=== PATIENT | male | born 1965 | race Hispanic/Latino ===

== ENCOUNTER 2017-08-17 15:51 | Observation (INO) | payer BC ==
[2017-08-17 15:52] VITALS: BMI 28.4
--- NOTE | 2017-08-17 17:47 | ED PDOC ---
Arrival/HPI - General Chief Complaint: Weakness/Neurological Deficit Time Seen by Provider: 08/17/17 16:42 Historian: Patient - History of Present Illness Narrative History of Present Illness (Text): 08/17/17 17:42 52 year old male, with no significant past medical history, presents to the emergency department complaining of right hand tingling and weakness for 1 week. Patient notes associated clumsiness, occasional difficulty speaking, and off balance when walking. Patient notes occasional drinks. Patient denies any fever, chills, chest pain, shortness of breath, nausea, vomiting, diarrhea, back pain, neck pain, headache, dizziness, or any other complaints. Time/Duration: 1 week Symptom Course: Unchanged Activities at Onset: Light Context: Home Past Medical History - Provider Review Nursing Documentation Reviewed: Yes - Infectious Disease Hx of Infectious Diseases: None - Cardiac Hx Cardiac Disorders: Yes - Pulmonary Hx Respiratory Disorders: No - Neurological Hx Neurological Disorder: No - HEENT Hx HEENT Disorder: No - Renal Hx Renal Disorder: No - Endocrine/Metabolic Hx Endocrine Disorders: No - Hematological/Oncological Hx Blood Disorders: No - Integumentary Hx Dermatological Disorder: No - Musculoskeletal/Rheumatological Hx Musculoskeletal Disorders: Yes Hx Falls: No Hx Herniated Disk: Yes (neck with epidural injections) - Gastrointestinal Hx Gastrointestinal Disorders: Yes (colitis) Hx Diverticulitis: Yes Hx Gastroesophageal Reflux: Yes - Genitourinary/Gynecological Hx Genitourinary Disorders: No - Psychiatric Hx Psychophysiologic Disorder: No Hx Substance Use: No - Surgical History Hx Cardiac Catheterization: Yes - Anesthesia Hx Anesthesia: Yes Hx Anesthesia Reactions: No Hx Malignant Hyperthermia: No Family/Social History - Physician Review Nursing Documentation Reviewed: Yes Family/Social History: No Known Family HX, Other Smoking Status: Never Smoked Hx Alcohol Use: Yes ("couple days a week") Frequency of alcohol use: Few days per week Hx Substance Use: No Hx Substance Use Treatment: No Allergies/Home Meds Allergies/Adverse Reactions: Allergies No Known Allergies Allergy (Verified 08/17/17 16:03) Home Medications: Home Meds Medication Instructions Recorded Confirmed No Known Home Med 08/17/17 08/17/17 Review of Systems - Patients Enrolled in [employer] [X]: A conversation was conducted with the primary medical doctor. - Physician Review All systems were reviewed & negative as marked: Yes - Review of Systems Constitutional: Normal Eyes: Normal ENT: Normal Respiratory: Normal. absent: SOB, Cough Cardiovascular: Normal. absent: Chest Pain Gastrointestinal: Normal. absent: Abdominal Pain, Diarrhea, Nausea, Vomiting Genitourinary Male: Normal. absent: Dysuria, Frequency, Urinary Output Changes Musculoskeletal: Other (hand tingling and weakness). absent: Back Pain, Neck Pain Skin: Normal. absent: Rash Neurological: Speech Changes (occasional difficulty speaking). absent: Headache , Dizziness Endocrine: Normal Hemo/Lymphatic: Normal Psychiatric: Normal Physical Exam Vital Signs Temp Resp BP Pulse Ox 08/17/17 19:37 98.1 F 18 152/98 H 98 - Systems Exam Head: Present: Atraumatic, Normocephalic Pupils: Present: PERRL Extroacular Muscles: Present: EOMI Conjunctiva: Present: Normal Mouth: Present: Moist Mucous Membranes Neck: Present: Normal Range of Motion Respiratory/Chest: Present: Clear to Auscultation, Good Air Exchange. No: Respiratory Distress, Accessory Muscle Use Cardiovascular: Present: Regular Rate and Rhythm, Normal S1, S2. No: Murmurs Abdomen: No: Tenderness, Distention, Peritoneal Signs Back: Present: Normal Inspection. No: CVA Tenderness, Midline Tenderness, Paraspinal Tenderness Upper Extremity: Present: Other (RUE +1 drift). No: Cyanosis, Edema Lower Extremity: Present: Normal Inspection. No: Edema Neurological: Present: Speech Normal, Other (mild sensation deficits rt face, rt arm, rt leg; + Romberg's sign; Ataxic when walking) Skin: Present: Warm, Dry, Normal Color. No: Rashes Psychiatric: Present: Alert, Oriented x 3, Normal Insight, Normal Concentration Medical Decision Making ED Course and Treatment: 08/17/17 17:53 Impression: 52 year old male presents to the emergency department complaining of rt hand tingling and weakness. Plan: -- Head CT -- Labs -- EKG -- Aspirin -- Reassess and disposition Progress Notes: 08/17/17 19:47 Due to no prior Hx of CVA, ataxia, or rt arm weakness, pt admitted for stroke work up. 08/17/17 19:58 EKG reviewed, shows NSR at [address] wave changes. Normal axis. Normal EKG. 08/17/17 21:04 concern for new subacute CVA and ataxia, given new onset, and no hx of cva, will admit for MRI and neuroconsult. dr. Neil requested Reassessment Condition: Unchanged - Lab Interpretations Lab Results: 08/17/17 17:56 08/17/17 17:56 Lab Results 08/17/17 17:56: PT 11.9, INR 1.04 08/17/17 17:56: Sodium 145, Potassium 4.6, Chloride 106, Carbon Dioxide 26, Anion Gap 17, BUN 19, Creatinine 1.2, Est GFR ( Amer) > 60, Est GFR (Non- Af Amer) > 60, Random Glucose 113 H, Calcium 9.1 08/17/17 17:56: WBC 7.5 D, RBC 5.24, Hgb 15.8, Hct 46.0, MCV 87.8, MCH 30.2, MCHC 34.3, RDW 12.2, Plt Count 261, MPV 9.8, Gran % 54.2, Lymph % (Auto) 33.3, [place] % (Auto) 10.1 H, Eos % (Auto) 2.1, Baso % (Auto) 0.3, Gran # 4.08, Lymph # (Auto) 2.5, [place] # (Auto) 0.8 H, Eos # (Auto) 0.2, Baso # (Auto) 0.02 08/17/17 15:58: POC Glucose (mg/dL) 125 H I have reviewed the lab results: Yes - RAD Interpretation Radiology Orders: 08/17/17 16:43 HEAD W/O CONTRAST [CT] Stat - EKG Interpretation Interpreted by ED Physician: Yes - Medication Orders Current Medication Orders: Sodium Chloride (Sodium Chloride 0.9%) 1,000 mls @ 100 mls/hr IV .Q10H STA Stop: 08/18/17 07:46 Discontinued Medications Aspirin (Aspirin Chewable) 324 mg PO STAT STA Stop: 08/17/17 19:47 NIHSS Stroke Scale 3 - Date/Time Evaluation Performed Date Performed: 08/17/17 Time Performed: 19:45 When Was NIHSS Performed: Baseline - How Severe is the Stroke Level of Consciousness: 0=Alert LOC to Questions: 0=Both comments correct LOC to commands: 0=Obeys both correctly Best Gaze: 0=Normal Visual: 0=No visual loss Facial: 0=Normal Motor Arm - Left: 0=No drift Motor Arm - Right: 1=Drift noted before 10 sec Motor Leg - Left: 0=No drift Motor Leg - Right: 0=No drift Limb Ataxia: 1=Present Upper or Lower Sensory: 1=Mild to moderate loss Best Language: 0=No aphasia Dysarthia: 0=Normal articulation Extinction & Inattention (Neglect): 0=Normal, no object Score: 3 - Scribe Statement The provider has reviewed the documentation as recorded by the Cyndieibaristeo Padilla All medical record entries made by the Cyndieibaristeo were at my direction and personally dictated by me. I have reviewed the chart and agree that the record accurately reflects my personal performance of the history, physical exam, medical decision making, and the department course for this patient. I have also personally directed, reviewed, and agree with the discharge instructions and disposition. Disposition/Present on Arrival - Present on Arrival Any Indicators Present on Arrival: No History of DVT/PE: No History of Uncontrolled Diabetes: No Urinary Catheter: No History of Decub. Ulcer: No History Surgical Site Infection Following: None - Disposition Have Diagnosis and Disposition been Completed?: Yes Diagnosis: Stroke Disposition: HOSPITALIZED Disposition Time: 22:03 Patient Plan: Observation, Telemetry Patient Problems: Current Active Problems Problem Status Onset Stroke Acute Condition: IMPROVED
[2017-08-17 18:00] LABS: BASO # 0.02 K/mm3 (0.0-2.0); BASO % 0.3 % (0.0-3.0); EOS # 0.2 (0.0-0.7); EOS % 2.1 % (1.5-5.0); GRAN # 4.08 (1.4-6.5); GRAN % 54.2 % (50.0-68.0); HEMOGLOBIN 15.8 g/dL (14.0-18.0); LYMPH # 2.5 (1.2-3.4); LYMPH % 33.3 % (22.0-35.0); MEAN CELL VOLUME 87.8 fl (80.0-105.0); MEAN CORPUSCULAR HEMOGLOBIN 30.2 pg (25.0-35.0); MEAN CORPUSCULAR HGB CONC 34.3 g/dl (31.0-37.0); MEAN PLATELET VOLUME 9.8 fl (7.0-11.0); MONO # 0.8 (0.1-0.6); MONO % 10.1 % (1.0-6.0); RBC 5.24 10^6/uL (3.5-6.1); RED CELL DISTRIBUTION WIDTH 12.2 % (11.5-14.5); WHITE BLOOD COUNT 7.5 10^3/ul (4.5-11.0)
[2017-08-17 18:11] LABS: INR 1.04 (0.93-1.08); PROTHROMBIN TIME 11.9 SECONDS (9.4-12.5)
[2017-08-17 18:13] LABS: BLOOD UREA NITROGEN 19 mg/dL (7-21); CALCIUM 9.1 mg/dL (8.4-10.5); GFR AFRICAN-AMERICAN > 60; GFR NON-AFRICAN AMERICAN > 60
--- NOTE | 2017-08-17 18:39 | CT ---
PROCEDURE: CT HEAD WITHOUT CONTRAST. HISTORY: Right arm weakness. COMPARISON: January 25, 2015 TECHNIQUE: Axial computed tomography images were obtained through the head/brain without intravenous contrast. Coronal and sagittal reconstructed images. Radiation dose: Total exam DLP = 871.77 mGy-cm. This CT exam was performed using one or more of the following dose reduction techniques: Automated exposure control, adjustment of the mA and/or kV according to patient size, and/or use of iterative reconstruction technique. FINDINGS: HEMORRHAGE: No intracranial hemorrhage. BRAIN: No mass effect or edema. No atrophy or chronic microvascular ischemic changes. VENTRICLES: Unremarkable. No hydrocephalus. CALVARIUM: Unremarkable. PARANASAL SINUSES: Unremarkable as visualized. No significant inflammatory changes. MASTOID AIR CELLS: Unremarkable as visualized. No inflammatory changes. OTHER FINDINGS: None. IMPRESSION: No acute intracranial abnormalities. No significant findings to account for the clinical presentation. No significant interval change compared to the prior examination(s).
[2017-08-17] MEDS ORDERED: Sodium Chloride 0.9% 1,000 ML IV STA (21:47)
[2017-08-18] MEDS ORDERED: Pneumococcal 23-Valent Vaccine IM ONE (01:03)
[2017-08-18 07:25] LABS: HDL CHOLESTEROL 39 mg/dL (29-60)
[2017-08-18 07:36] LABS: LDL CHOLESTEROL 146 mg/dL (0-129)
[2017-08-18 08:10] LABS: TROPONIN I < 0.01 ng/mL
[2017-08-18] MEDS ORDERED: Enoxaparin 100 mg Syringe SC STA (08:50)
[2017-08-18] MEDS: Aspirin 325 mg EC Tablets PO SCH (10:06)
--- NOTE | 2017-08-18 12:17 | CON ---
DATE: 08/18/2017 INDICATIONS: Right upper extremity numbness, light headedness, chest pain rule out stroke. HISTORY OF PRESENT ILLNESS: This is a 52-year-old man known to me, admitted yesterday when he complained of numbness in his right hand for about a week extending into his right forearm for a day or so. He came to the emergency room for evaluation. He was admitted. Today, he describes brief chest pain yesterday, as well. He has been light headed. There was a period of slurred speech as well. He does not describe typical exertional chest pain, shortness of breath, orthopnea, PND, syncope, vertigo, palpitations, edema, claudication, fever, chills, cough, sputum production, hemoptysis, abdominal pain, nausea, vomiting, diarrhea, constipation, melena. PAST MEDICAL HISTORY: Notable for mild coronary artery disease on a catheterization several years ago. He has cerebrovascular disease on an ultrasound several years ago. He has a history of hyperlipidemia and lactose intolerance. There is a strong family history of heart disease. There is no history of myocardial infarction, angina, congestive heart failure, arrhythmia, diabetes, or gout. MEDICATIONS: At the time of admission is Lipitor 20 mg daily. ALLERGIES: THERE WERE NO MEDICATION ALLERGIES REPORTED. FAMILY HISTORY: Notable for heart disease. SOCIAL HISTORY: He lives at home. He is ambulatory. He does not smoke. He drinks occasionally during the week. He does not use drugs. REVIEW OF SYSTEMS: A 10-point review of systems is otherwise unremarkable except as noted above. PHYSICAL EXAMINATION: GENERAL: He is a well-developed male in no acute distress on 3R. He is in sinus rhythm to sinus bradycardia. VITAL SIGNS: He is afebrile. Blood pressure 149/82, respirations 18 to 20, O2 sat 96-100% on room air. HEENT: Reveals no neck vein distention, thyromegaly or carotid bruit. Mucous membranes moist. Conjunctivae pink. NECK: Supple. LUNGS: Lung dubon clear. HEART: Reveals normal first and second heart sounds without murmur, gallop, rub or click. ABDOMEN: Soft. Bowel sounds are present. No mass, organomegaly, tenderness, rebound or guarding. No CVA tenderness. No palpable abdominal aortic aneurysm. EXTREMITIES: Reveal no cyanosis, clubbing or edema. NEUROLOGIC: He was awake, alert and oriented. PSYCHIATRIC: Normal as to mood and affect. SKIN: Warm and dry. No rash or cellulitis. LABORATORY DATA AND IMAGING: The EKG demonstrated regular sinus rhythm and is within normal limits. CT scan of the head revealed no acute intracranial abnormalities. CBC is unremarkable. PT/INR unremarkable. Electrolytes, BUN, creatinine, blood sugar unremarkable. Calcium is normal. CK 175, troponin less than 0.01, cholesterol is 215, LDL is 146, HDL is 39, triglyceride is 222. IMPRESSION: Ronny Oneal is a 52-year-old man with vague chest pain, history of mild coronary artery disease, benign EKG and a negative troponin who also describes 1 week of numbness in the right hand and then in the right forearm with episodes of slurred speech and persisting vague lightheadedness. He is admitted to telemetry. I will repeat his troponin. He is having a neurologic evaluation. Carotid ultrasound and MRIs will be ordered. I will order an echocardiogram. He is on aspirin. I will continue Lipitor. I will follow along with you. Make additional recommendations based on his clinical course. Edd Love MD SONAL
[2017-08-18] MEDS: Sodium Chloride 0.9% 1,000 ML IV SCH (13:40)
--- NOTE | 2017-08-18 14:22 | MRI ---
PROCEDURE: MRI BRAIN WITHOUT CONTRAST HISTORY: ataxia COMPARISON: 08/27/2012 MRI TECHNIQUE: Multiplanar, multisequence MR images of the brain were obtained without intravenous contrast enhancement. FINDINGS: HEMORRHAGE: None DWI: No evidence of an acute or early subacute infarction. BRAIN PARENCHYMA: No mass effect or edema. No atrophy or chronic microvascular ischemic changes. VENTRICLES: Unremarkable. No hydrocephalus. CRANIUM: Unremarkable. ORBITS: Grossly unremarkable. PARANASAL SINUSES/MASTOIDS: Clear VASCULAR SYSTEM: Skull base flow voids intact. OTHER FINDINGS: None. IMPRESSION: Unremarkable non contrast enhanced MRI of the brain.
--- NOTE | 2017-08-18 14:58 | CARD ---
APPROVED REPORT EXAM: Two-dimensional and M-mode echocardiogram with Doppler and color Doppler. INDICATION R/O CVA 2D DIMENSIONS Left Atrium (2D)4.0 (1.6-4.0cm)IVSd0.9 (0.7-1.1cm) LVDd4.6 (3.9-5.9cm)PWd1.1 (0.7-1.1cm) LVDs3.4 (2.5-4.0cm)FS (%) 26.8 % LVEF (%)52.3 (>50%) M-Mode DIMENSIONS Aortic Root3.00 (2.2-3.7cm)Aortic Cusp Exc.1.80 (1.5-2.0cm) Aortic Valve AoV Peak Ehokgfjm829.0cm/Ivonne Peak GR.6mmHg Mitral Valve MV E Hulakect89.3cm/sMV A Quwwbfhp39.5cm/sE/A ratio0.8 TDI Lateral E' Peak V11.10cm/sMedial E' Peak V7.51cm/sE/Lateral E'4.9 E/Medial E'7.2 Pulmonary Valve PV Peak Vptbuqon46.8cm/sPV Peak Grad.1mmHg Tricuspid Valve TR Peak Nyztntpc542my/sRAP [id number] Peak Gr.7mmHg [id number] LEFT VENTRICLE The left ventricle is normal size. There is normal left ventricular wall thickness. The left ventricular function is normal. The left ventricular ejection fraction is within the normal range. There is normal LV segmental wall motion. RIGHT VENTRICLE The right ventricle is normal size. The right ventricular systolic function is normal. ATRIA The left atrium is borderline dilated. The right atrium size is normal. The interatrial septum is intact with no evidence for an atrial septal defect. AORTIC VALVE The aortic valve is normal in structure. No aortic regurgitation is present. There is no aortic valvular stenosis. MITRAL VALVE The mitral valve is normal in structure. Mitral regurgitation is mild. TRICUSPID VALVE The tricuspid valve is normal in structure. There is mild tricuspid regurgitation. PULMONIC VALVE The pulmonary valve is normal in structure. GREAT VESSELS The aortic root is normal in size. The IVC is normal in size and collapses >50% with inspiration. PERICARDIAL EFFUSION There is no pleural effusion. There is no pericardial effusion. <Conclusion> Borderline LA enlargement. Normal LV size and systolic function. Mild MR and TR.
[2017-08-18 18:42] VITALS: RESP 18
--- NOTE | 2017-08-18 19:32 | CON ---
DATE: 08/18/2017 NEUROLOGY CONSULTATION CHIEF COMPLAINT: Dizziness and right upper extremity numbness. HISTORY OF PRESENT ILLNESS: This is a 52-year-old man with history notable for mild coronary artery disease with cardiac catheterization several years ago, history of hypertension, hyperlipidemia who presented to the hospital with right hand numbness and decreased right handgrip, in addition paresthesias of the right forearm as well as slight dizziness and a period of slurred speech. CAT of the head showed no acute intracranial abnormality. MRI of the brain was nonfocal, showed no acute intracranial abnormalities. It seems that his right hand numbness is more of a peripheral problem rather than central and rather than it was negative. Carotid Doppler report is pending. No focal weakness seen on neurological exam. PAST MEDICAL HISTORY: As above. SOCIAL HISTORY: No illicit drug use, smoking, or EtOH abuse. ALLERGIES: NO KNOWN DRUG ALLERGIES. MEDICATIONS: Reviewed by nurses' reconciliation sheet. REVIEW OF SYSTEMS: A 14-point review of systems negative except in the HPI. LABORATORY DATA: Sodium is 145, potassium 4.6, chloride of 106, carbon dioxide of 26, BUN of 90, creatinine 1.2, random glucose 113. Elevated triglycerides of 220. LDL of 146. PHYSICAL EXAMINATION: VITAL SIGNS: Temperature afebrile, pulse rate of 88, blood pressure 149/80, respiratory rate 20, oxygen saturation 97% by room air. GENERAL: The patient is sitting up in bed, in no acute distress. HEENT: Head is atraumatic and normocephalic. PERRLA. Extraocular muscles intact. NECK: Supple. No JVD. No adenopathy noted. LUNGS: Clear to auscultation. No adventitious sounds. HEART: S1 and S2, normal rate and rhythm. No murmur, rubs, or gallops. ABDOMEN: Soft, nontender, and nondistended. Bowel sounds present. EXTREMITIES: No clubbing. No cyanosis. Peripheral pulses 2+ felt bilaterally. NEUROLOGIC: The patient is alert and oriented to person, place, month, and year. Speech is fluent without any errors. Cranial nerves II through XII intact. Motor: Moves all extremities equally. No pronator drift seen. Sensory: Light touch pinprick, proprioception, and vibration are intact. DTRs are 2+ throughout. Coordination, [id number]-fzzd intact. Gait is deferred for now. No dysmetria noted. ASSESSMENT AND PLAN: This is a 52-year-old man with history of hypertension, dyslipidemia, has right upper extremity numbness in terms of hand numbness up to the forearm, but no neck pain or radicular symptoms. He had transient lightheadedness, likely from mild hypertensive urgency in terms of diastolic. At this time, we will recommend; 1. Outpatient EMG of the upper extremities to assess for any peripheral nerve injury of the right hand. 2. Aspirin 81 and Lipitor 40 mg p.o. daily for stroke prevention. 3. Low fat, low cholesterol diet. 4. Continue current present medical management. Avoid sudden movements. Orthostatic vital signs. He is clinically stable from my standpoint. Jatinder Neil MD
--- NOTE | 2017-08-18 21:30 | CARD ---
APPROVED REPORT EKG Measurement Heart [id number] <Conclusion> Normal sinus rhythm Normal ECG
[2017-08-19] MEDS: Sodium Chloride 0.9% 1,000 ML IV SCH (05:18)
--- NOTE | 2017-08-19 06:47 | CP.PCM.PN ---
Subjective - Date & Time of Evaluation Date of Evaluation: 08/19/17 Time of Evaluation: 06:45 - Subjective Subjective: Nurse calls and tells that patient had chest pain, EKG was done, troponin is due now. Patient was seen at bed side. Has little chest pain in lower sternal area, no localized tenderness. No other complaint now. Denies sob, nausea, sweating , palpitations. Medical record was reviewed. Came in with right upper extremity numbness. EKG --->Sinus bradycardia. Has PMH of herniated disc, colitis, GERD. Objective - Vital Signs/Intake and Output Vital Signs (last 24 hours): Temp Pulse Resp BP Pulse Ox 98.4 F 48 L 18 124/84 98 08/18/17 18:00 08/19/17 02:00 08/18/17 18:00 08/18/17 18:00 08/18/17 18:00 Intake and Output: 08/18/17 08/19/17 18:59 06:59 Intake Total 510 840 Output Total 950 Balance 510 -110 - Medications Medications: Current Medications Aspirin (Ecotrin) 325 mg PO DAILY [facility] Last Admin: 08/18/17 10:06 Dose: 325 mg Atorvastatin Calcium (Lipitor) 20 mg PO DIN [facility] Last Admin: 08/18/17 17:17 Dose: 20 mg Famotidine (Pepcid) 20 mg IVP BID [facility] Last Admin: 08/18/17 17:17 Dose: 20 mg Sodium Chloride (Sodium Chloride 0.9%) 1,000 mls @ 80 mls/hr IV .[id number] [facility] Last Admin: 08/19/17 05:18 Dose: Not Given - Labs Labs: PT 11.9 SECONDS (9.4-12.5) 08/17/17 17:56 INR 1.04 (0.93-1.08) 08/17/17 17:56 Most Recent Lab Values WBC 7.5 10^3/ul (4.5-11.0) D 08/17/17 17:56 RBC 5.24 10^6/uL (3.5-6.1) 08/17/17 17:56 Hgb 15.8 g/dL (14.0-18.0) 08/17/17 17:56 Hct 46.0 % (42.0-52.0) 08/17/17 17:56 MCV 87.8 fl (80.0-105.0) 08/17/17 17:56 MCH 30.2 pg (25.0-35.0) 08/17/17 17:56 MCHC 34.3 g/dl (31.0-37.0) 08/17/17 17:56 RDW 12.2 % (11.5-14.5) 08/17/17 17:56 Plt Count 261 10^3/uL (120.0-450.0) 08/17/17 17:56 MPV 9.8 fl (7.0-11.0) 08/17/17 17:56 Gran % 54.2 % (50.0-68.0) 08/17/17 17:56 Lymph % (Auto) 33.3 % (22.0-35.0) 08/17/17 17:56 [place] % (Auto) 10.1 % (1.0-6.0) H 08/17/17 17:56 Eos % (Auto) 2.1 % (1.5-5.0) 08/17/17 17:56 Baso % (Auto) 0.3 % (0.0-3.0) 08/17/17 17:56 Gran # 4.08 (1.4-6.5) 08/17/17 17:56 Lymph # (Auto) 2.5 (1.2-3.4) 08/17/17 17:56 [place] # (Auto) 0.8 (0.1-0.6) H 08/17/17 17:56 Eos # (Auto) 0.2 (0.0-0.7) 08/17/17 17:56 Baso # (Auto) 0.02 K/mm3 (0.0-2.0) 08/17/17 17:56 PT 11.9 SECONDS (9.4-12.5) 08/17/17 17:56 INR 1.04 (0.93-1.08) 08/17/17 17:56 Sodium 145 mmol/L (132-148) 08/17/17 17:56 Potassium 4.6 mmol/L (3.6-5.0) 08/17/17 17:56 Chloride 106 mmol/L (98-107) 08/17/17 17:56 Carbon Dioxide 26 mmol/L (21-33) 08/17/17 17:56 Anion Gap 17 (10-20) 08/17/17 17:56 BUN 19 mg/dL (7-21) 08/17/17 17:56 Creatinine 1.2 mg/dl (0.8-1.5) 08/17/17 17:56 Est GFR ( Amer) > 60 08/17/17 17:56 Est GFR (Non-Af Amer) > 60 08/17/17 17:56 POC Glucose (mg/dL) 96 mg/dL (65-110) 08/18/17 11:30 Random Glucose 113 mg/dL (70-110) H 08/17/17 17:56 Calcium 9.1 mg/dL (8.4-10.5) 08/17/17 17:56 Lactate Dehydrogenase 349 U/L (333-699) 08/18/17 07:26 Total Creatine Kinase 175 U/L (35-230) 08/18/17 07:26 Troponin I < 0.01 ng/mL 08/19/17 06:30 Triglycerides 222 mg/dL (35-160) H 08/18/17 06:45 Cholesterol 215 mg/dL (130-200) H 08/18/17 06:45 LDL Cholesterol Direct 146 mg/dL (0-129) H 08/18/17 06:45 HDL Cholesterol 39 mg/dL (29-60) 08/18/17 06:45 Vitamin B12 319 pg/mL (239-931) 08/18/17 06:30 - Constitutional Appears: Well, No Acute Distress - Head Exam Head Exam: ATRAUMATIC, NORMAL INSPECTION, NORMOCEPHALIC - Eye Exam Eye Exam: Normal appearance - ENT Exam ENT Exam: Normal External Ear Exam - Neck Exam Neck Exam: Normal Inspection - Respiratory Exam Respiratory Exam: Chest Wall Tenderness Assessment and Plan - Assessment and Plan (Free Text) Assessment: Substernal chest pain. Right upper extremity numbness. Colitis history. GERD. History of herniated disc. Plan: EKG---->Sinus bradycardia. Troponin-----><0.01. Continue present management.Possible discharge.
--- NOTE | 2017-08-19 08:35 | US ---
PROCEDURE: Bilateral carotid artery duplex US HISTORY: Carotid stenosis PHYSICIAN(S): Noe Bills MD. TECHNIQUE: Duplex sonography and color-flow Doppler were used to evaluate the carotid bifurcations and limited segments of the vertebral arteries bilaterally. FINDINGS: There is mild smooth hypoechoic plaque noted at the carotid bifurcations bilaterally. The peak systolic velocity in the proximal right internal carotid artery is 72cm/sec. This corresponds to a 20 to 39% proximal right ICA stenosis. Normal systolic velocities are noted in the proximal right external carotid artery. There is antegrade flow in the right vertebral artery. The peak systolic velocity in the proximal left internal carotid artery is 65 cm/sec. This corresponds to a 20 to 39% proximal left ICA stenosis. Normal systolic velocities are noted in the proximal left external carotid artery. There is antegrade flow in the left vertebral artery. IMPRESSION: 1. Bilateral 20-39% proximal ICA stenoses. 2. Antegrade flow in both vertebral arteries.
[2017-08-19 08:47] VITALS: BP 130/73; TEMP 98.1; O2SAT 96
--- NOTE | 2017-08-19 09:43 | HP ---
DATE OF EXAM: 08/17/2017 HISTORY OF PRESENT ILLNESS: Mr. Oneal is a 52-year-old male, admitted to the hospital with ataxia. He developed tingling of the right hand and weakness of the right hand for 1 week. Denies any shortness of breath. No chest pain. No nausea. No vomiting. No diarrhea. He is an alcohol occasional drinker. History of GE reflux disease. No recent exacerbation. Had cardiac catheterization in the past. PAST MEDICAL HISTORY: Herniated disk, colitis, GE reflux. PAST SURGICAL HISTORY: Cardiac catheterization. PERSONAL HISTORY: Never smoked. No history of alcohol abuse. FAMILY HISTORY: Noncontributory. ALLERGIES: NO KNOWN DRUG ALLERGIES. HOME MEDICATIONS: None. REVIEW OF SYSTEMS: As per HPI. Rest of 12-point review of systems reviewed negative. PHYSICAL EXAMINATION: GENERAL: Comfortable in bed, in no acute distress. VITAL SIGNS: Temperature 98.7, heart rate is per minute, blood pressure 150/98, pulse ox is 98% on room air. HEENT: Normal. NECK: No lymphadenopathy. CHEST: Air entry present and equal bilateral. No added sound. CARDIOVASCULAR: S1, S2 normal. No murmur. No gallop. ABDOMEN: Soft, nontender. No hepatosplenomegaly. EXTREMITY: No edema. SKIN: No petechiae. No rash. LABORATORY DATA: White count 7.5, hemoglobin 15.8, hematocrit 46, platelet count 261. Sodium 145, potassium 4.6, BUN 19, creatinine 1.2, glucose 113. Monocyte 10% on differential. CT head unremarkable, noncontrast. ASSESSMENT: 1. Ataxia. 2. Herniated disk. 3. Monocytosis. PLAN: He will be admitted to the hospital. MRI of the brain ordered. Neurology consultation, Dr. Neil requested. IV fluid normal saline at 100 mL an hour. We will continue to monitor blood count. Glucose has been normal. CBC showed monocytosis with elevated monocyte count of 10%. We will continue to monitor blood count. Monocyte count can be increased in viral infections. Unsure if related to current neurological symptoms. Carley Oquendo MD
--- NOTE | 2017-08-19 10:05 | PN ---
DATE: 08/18/2017 SUBJECTIVE He is comfortable in bed, in no acute distress. Tingling in right arm decreased. He developed chest pain at 03:00 a.m. in the morning. He did not inform the nursing staff. He informed the nursing staff at 08:00 a.m. this morning that he developed a chest pain for short period of time which was resolved. He is also complaining of retrosternal burning now. Evaluated by house staff early this morning. EKG was normal. He was transferred to tele monitoring. REVIEW OF SYSTEMS: As per HPI. Rest of 12-point review of systems reviewed negative. PHYSICAL EXAMINATION: GENERAL: Comfortable in bed, in no acute distress. VITAL SIGNS: Temperature 98.7, heart rate 88 per minute, blood pressure 120/70, respiratory rate 16 per minute, oxygen saturation 98% on room air. HEENT: Pallor positive. NECK: No lymphadenopathy. CHEST: Air entry present equal bilaterally. No added sound. CARDIOVASCULAR: S1, S2 normal. No murmur. No gallop. ABDOMEN: Soft, nontender. No hepatosplenomegaly. EXTREMITIES: No edema. SKIN: No petechiae. No rash. LABORATORY DATA: White count 7.5, hemoglobin 15.8, platelet 261. Creatinine 1.2. Monocyte count 10%. MEDICATIONS: Normal saline at 80 mL/hour, Lipitor 20 mg daily. aspirin 325 mg daily. ASSESSMENT AND PLAN: 1. Ataxia. 2. Monocytosis. 3. Chest pain. PLAN: He will be transferred to tele monitoring. Serial troponins 3 times for further evaluation. Cardiac consultation, Dr. Metz requested. Neurology consultation, Dr. Neil appreciated. MRI of the brain done today unremarkable. We will do serial troponin 3 levels. If normal, will be discharged tomorrow. He will be further evaluated by Neurology as outpatient for ataxia. Carley Oquendo MD
--- NOTE | 2017-08-19 10:18 | DS ---
DISCHARGE DIAGNOSES 1. Ataxia. 2. Noncardiac chest pain. 3. Monocytosis. HOSPITAL COURSE: The patient was admitted with ataxia, right arm weakness and CT head was unremarkable. MRI of the brain unremarkable. Evaluated by Neurology, Dr. Neil. Developed chest pain during hospitalization. Cardiac workup negative. He is being discharged in stable condition. PHYSICAL EXAMINATION ON DISCHARGE: GENERAL: Comfortable in bed, in no acute distress. VITAL SIGNS: Temperature 98.7, heart rate 80 per minute, blood pressure 120/70. HEENT: No pallor. NECK: No lymphadenopathy. CHEST: Air entry present equal bilateral. CARDIOVASCULAR: S1, S2 normal. No murmur, no gallop. ABDOMEN: Soft, nontender. No hepatosplenomegaly. EXTREMITIES: No edema. SKIN: No petechiae. No rash. SPINE: Nontender. BUSINESS ASST: Alert and oriented x3. No focal, sensory or motor deficit. DISPOSITION: Discharge home. DISCHARGE MEDICATIONS: Lipitor 20 mg daily, Pepcid 20 mg daily, aspirin 81 mg daily. FOLLOWUP: Follow up with Dr. Neil in 1 week. Follow up with Dr. Capone in 1 week. CONDITION ON DISCHARGE Stable. TIME SPENT IN PREPARING DISCHARGE AND COORDINATING CARE: 60 minutes. Carley Oquendo MD
[2017-08-19] MEDS: Aspirin 325 mg EC Tablets PO SCH (10:24)
[2017-08-19 11:58] VITALS: PULSE 64
--- NOTE | 2017-08-19 12:39 | PN ---
DATE: 08/19/2017 SUBJECTIVE: The patient is seen sitting in bed on remote telemetry. He had some chest discomfort earlier today. He feels significantly improved. His electrocardiogram showed no acute changes and cardiac enzymes are negative. His speech is improved as well. His current medications include Ecotrin, Lipitor 20 mg daily, Pepcid. OBJECTIVE: GENERAL: He is a middle-aged man who appears comfortable at rest. VITAL SIGNS: His blood pressure is 124/84, pulse of 50 and sinus, respirations 16. He is afebrile. HEENT: No JVD. CHEST: Clear to auscultation and percussion. HEART: No pathological murmur or gallops heard. ABDOMEN: Soft, nontender with bowel sounds. EXTREMITIES: No edema. DIAGNOSTIC DATA: Troponin is negative. Electrocardiogram reveals sinus rhythm with no acute abnormalities. Echocardiogram was performed as well and this reveals borderline left atrial enlargement with normal LV size and systolic function as well as mild mitral and tricuspid regurgitation. IMPRESSION: 1. Chest pain, unclear if this is anginal in nature. Prior catheterization several years ago showed minimal coronary disease at that time. 2. Recent neurologic symptoms with no clear evidence of central nervous system event. RECOMMENDATIONS: From the cardiac standpoint, he appears stable for discharge home at this time. Aspirin and statin therapy should continue. Outpatient followup will be arranged and a stress test will be arranged as well. Priyank Lugo MD
--- NOTE | 2017-08-19 14:04 | CARD ---
APPROVED REPORT EKG Measurement Heart [id number] <Conclusion> Sinus bradycardia Otherwise normal ECG
== END 2017-08-19 14:18 | disposition home or self-care (01) ==
LOC: ED 15:51 → ERH 21:42 → 3RSO 23:28
PROVIDERS: ADMIT Internal Medicine Medical Oncology; ATTEND Internal Medicine Medical Oncology
DX: R27.0 Ataxia, unspecified (principal); R07.89 Other chest pain; D72.821 Monocytosis (symptomatic); E78.5 Hyperlipidemia, unspecified; E73.9 Lactose intolerance, unspecified; I10 Essential (primary) hypertension; I16.0 Hypertensive urgency; I25.10 Atherosclerotic heart disease of native coronary artery without angina pectoris; K21.9 Gastro-esophageal reflux disease without esophagitis; K52.9 Noninfective gastroenteritis and colitis, unspecified; Z79.82 Long term (current) use of aspirin; Z79.899 Other long term (current) drug therapy; Z82.49 Family history of ischemic heart disease and other diseases of the circulatory system; E78.1 Pure hyperglyceridemia; R00.1 Bradycardia, unspecified
CPT/HCPCS: 36415; 70450; 70551; 80048; 80061; 82550; 82607; 82948; 83615; 84484; 85025; 85610; 93005; 93306; 93880; 96372; 96374; 96376; 99285; G0378; J1650; J7030

== ENCOUNTER 2018-05-29 13:36 | Observation (INO) | payer BC ==
[2018-05-29 13:39] VITALS: BMI 28.1
[2018-05-29 14:23] LABS: BASO # 0.02 K/mm3 (0.0-2.0); BASO % 0.3 % (0.0-3.0); EOS # 0.1 (0.0-0.7); EOS % 1.3 % (1.5-5.0); HEMOGLOBIN 15.8 g/dL (14.0-18.0); LYMPH # 2.2 (1.2-3.4); LYMPH % 35.8 % (22.0-35.0); MEAN CELL VOLUME 87.7 fl (80.0-105.0); MEAN CORPUSCULAR HEMOGLOBIN 29.4 pg (25.0-35.0); MEAN CORPUSCULAR HGB CONC 33.5 g/dl (31.0-37.0); MEAN PLATELET VOLUME 9.8 fl (7.0-11.0); MONO # 0.5 (0.1-0.6); MONO % 8.3 % (1.0-6.0); RBC 5.37 10^6/uL (3.5-6.1); RED CELL DISTRIBUTION WIDTH 12.1 % (11.5-14.5); WHITE BLOOD COUNT 6.2 10^3/uL (4.5-11.0)
[2018-05-29 14:24] LABS: ALB/GLOB RATIO 1.2 (1.1-1.8); ALBUMIN 4.4 g/dL (3.0-4.8); ALT/SGPT 39 U/L (7-56); AST/SGOT 34 U/L (17-59); BLOOD UREA NITROGEN 16 mg/dL (7-21); CALCIUM 9.3 mg/dL (8.4-10.5); GFR NON-AFRICAN AMERICAN > 60
[2018-05-29 14:25] LABS: IRON 177 ug/dL (45-180)
[2018-05-29] MEDS ORDERED: Sodium Chloride 0.9% 1,000 ML IV STA (14:25)
[2018-05-29 14:26] LABS: INR 1.12; PARTIAL THROMBOPLASTIN TIME 32.1 Seconds (26.9-38.3); PROTHROMBIN TIME 12.6 SECONDS (9.4-12.5)
[2018-05-29 14:35] LABS: % IRON SATURATION 59 % (20-55); TOTAL IRON BINDING CAPACITY 299 ug/dL (261-462)
[2018-05-29 14:36] LABS: B-TYPE NATRIURETIC PEPTIDE 62.7 pg/mL (0-450); TROPONIN I < 0.01 ng/mL
--- NOTE | 2018-05-29 14:39 | RAD ---
Date of service: 05/29/2018 HISTORY: chest pain COMPARISON: 03/03/2017. FINDINGS: LUNGS: The lungs are well inflated and clear. PLEURA: No pleural effusions or pneumothorax. CARDIOVASCULAR: The heart is normal in size. No aortic atherosclerotic calcifications present. OSSEOUS STRUCTURES: Within normal limits for the patient's age. VISUALIZED UPPER ABDOMEN: Normal. OTHER FINDINGS: None. IMPRESSION: No active pulmonary disease.
--- NOTE | 2018-05-29 14:43 | ED PDOC ---
Arrival/HPI - General Chief Complaint: Chest Pain Time Seen by Provider: 05/29/18 13:39 Historian: Patient - History of Present Illness Narrative History of Present Illness (Text): 05/29/18 16:37 52 y/o male with PMH of HLD and hemochromatosis presents to the ED c/o chest pain and SOB x 1 week that worsened yesterday. Chest pain described as a midsternal "discomfort" that occasionally radiates through to his upper back. Pt's interactive media marketing specialist Dr. Rose, last stress test was normal. Pt states he has no history of HTN, but had elevated BP today. Has not had iron studies done or undergone phlebotomy for his hemochromatosis in a few months. Follows with Dr. Oquendo. Denies fever, chills, cough, abdominal pain, nausea, vomiting, sinus congestion, numbness, weakness, paresthesias, headache, or any other associated complaints. Past Medical History - Provider Review Nursing Documentation Reviewed: Yes - Infectious Disease Hx of Infectious Diseases: None - Cardiac Hx Cardiac Disorders: Yes - Pulmonary Hx Respiratory Disorders: No - Neurological Hx Neurological Disorder: No - HEENT Hx HEENT Disorder: No - Renal Hx Renal Disorder: No - Endocrine/Metabolic Hx Endocrine Disorders: No - Hematological/Oncological Hx Blood Disorders: No Other/Comment: hemochromatosis - Integumentary Hx Dermatological Disorder: No - Musculoskeletal/Rheumatological Hx Falls: No - Gastrointestinal Hx Gastrointestinal Disorders: Yes (colitis) Hx Diverticulitis: Yes Hx Gastroesophageal Reflux: Yes - Genitourinary/Gynecological Hx Genitourinary Disorders: No - Psychiatric Hx Psychophysiologic Disorder: No Hx Substance Use: No - Surgical History Hx Cardiac Catheterization: Yes - Anesthesia Hx Anesthesia: Yes Hx Anesthesia Reactions: No Hx Malignant Hyperthermia: No Family/Social History - Physician Review Nursing Documentation Reviewed: Yes Family/Social History: No Known Family HX Smoking Status: Never Smoked Hx Alcohol Use: Yes ("couple days a week") Hx Substance Use: No Hx Substance Use Treatment: No Allergies/Home Meds Allergies/Adverse Reactions: Allergies No Known Allergies Allergy (Verified 05/29/18 19:24) Review of Systems - Review of Systems Constitutional: Normal. absent: Fatigue, Fevers Eyes: Normal. absent: Vision Changes ENT: Normal. absent: Sore Throat, Sinus Congestion Respiratory: SOB. absent: Cough Cardiovascular: Chest Pain. absent: Palpitations Gastrointestinal: Normal. absent: Abdominal Pain, Nausea, Vomiting Genitourinary Male: Normal. absent: Dysuria, Frequency Musculoskeletal: Back Pain. absent: Arthralgias, Neck Pain Skin: Normal. absent: Rash Neurological: Normal. absent: Headache, Dizziness Endocrine: Normal Hemo/Lymphatic: Normal Psychiatric: Normal Physical Exam Vital Signs Reviewed: Yes Vital Signs Temp Pulse Resp BP Pulse Ox 05/29/18 13:36 98.8 F 67 18 148/80 97 Temperature: Afebrile Blood Pressure: Hypertensive Pulse: Regular Respiratory Rate: Normal Appearance: Positive for: Well-Appearing, Non-Toxic, Uncomfortable Pain Distress: None Mental Status: Positive for: Alert and Oriented X 3 - Systems Exam Head: Present: Atraumatic, Normocephalic Pupils: Present: PERRL Extroacular Muscles: Present: EOMI Conjunctiva: Present: Normal Mouth: Present: Moist Mucous Membranes Neck: Present: Normal Range of Motion. No: Meningeal Signs Respiratory/Chest: Present: Clear to Auscultation, Good Air Exchange. No: Respiratory Distress, Accessory Muscle Use Cardiovascular: Present: Regular Rate and Rhythm, Normal S1, S2, Peripheal Pulses Present Abdomen: Present: Normal Bowel Sounds. No: Tenderness, Distention, Peritoneal Signs, Rebound, Guarding Back: Present: Normal Inspection. No: CVA Tenderness, Midline Tenderness, Paraspinal Tenderness Upper Extremity: Present: Normal Inspection, Normal ROM, NORMAL PULSES, Neurovascularly Intact, Capillary Refill < 2s. No: Cyanosis, Edema, Temperature Abnormalties Lower Extremity: Present: Normal Inspection, NORMAL PULSES, Neurovascularly Intact, Capillary Refill < 2 s. No: Edema, Temperature Abnormalties Neurological: Present: GCS=15, CN II-XII Intact, Speech Normal, Motor Func Grossly Intact, Normal Sensory Function, Gait Normal Skin: Present: Warm, Dry, Normal Color. No: Rashes Psychiatric: Present: Alert, Oriented x 3, Normal Insight, Normal Concentration, Normal Affect, Normal Mood Medical Decision Making ED Course and Treatment: Initial Plan: * CBC, CMP * Cardiac Iso * Coags * Mg, Phos * EKG * CXR * CTA * IVF Spoke with Dr. Oquendo who recommends iron studies and asks to be consulted if patient is admitted. Will hold ASA pending CTA EKG is NSR at 68, no STEMI or ischemic changes; troponin negative Bloodwork reviewed, unremarkble. Iron studies wnl. CXR shows no active disease CTA unremarkable for dissection, inflammation in the colon read as diverticulitis vs. chronic change. Pt has no leukocytosis, tenderness, or pain. Abdomen is soft. No diarrhea. [address] Lund, admitting for Dr. Gaines, who accepted patient for inpatient observation with the diagnoses of SOB, Chest pain, and hemochromatosis, and elevated BP. Will consult patient's interactive media marketing specialist Dr. Rose and heme/onc Dr. Oquendo. Pt updated with change in disposition and is resting comfortably in stretcher with stable vital signs at this time. - Lab Interpretations Lab Results: PT 12.6 SECONDS (9.4-12.5) H 05/29/18 14:00 INR 1.12 05/29/18 14:00 APTT 32.1 Seconds (26.9-38.3) 05/29/18 14:00 Troponin I < 0.01 ng/mL 05/29/18 14:00 NT-Pro-B Natriuret Pep 62.7 pg/mL (0-450) 05/29/18 14:00 Total Bilirubin 0.9 mg/dL (0.2-1.3) 05/29/18 14:00 AST 34 U/L (17-59) 05/29/18 14:00 ALT 39 U/L (7-56) 05/29/18 14:00 Alkaline Phosphatase 88 U/L (38-126) 05/29/18 14:00 Total Protein 8.0 g/dL (5.8-8.3) 05/29/18 14:00 Albumin 4.4 g/dL (3.0-4.8) 05/29/18 14:00 Globulin 3.6 gm/dL 05/29/18 14:00 Albumin/Globulin Ratio 1.2 (1.1-1.8) 05/29/18 14:00 05/29/18 14:00 05/29/18 14:00 Lab Results 05/29/18 14:00: D-Dimer, Quantitative < 200 05/29/18 14:00: Iron 177, TIBC 299, % Saturation 59 H 05/29/18 14:00: Sodium 139, Potassium 4.3, Chloride 105, Carbon Dioxide 24, Anion Gap 14, BUN 16, Creatinine 0.9, Est GFR ( Amer) > 60, Est GFR (Non- Af Amer) > 60, Random Glucose 118 H, Calcium 9.3, Magnesium 2.0, Ferritin 38.4, Total Bilirubin 0.9, AST 34, ALT 39, Alkaline Phosphatase 88, Lactate Dehydrogenase 460, Total Creatine Kinase 250 H, CK-MB (CK-2) 2.4, CK-MB (CK-2) % Cancelled, Troponin I < 0.01, NT-Pro-B Natriuret Pep 62.7, Total Protein 8.0, Albumin 4.4, Globulin 3.6, Albumin/Globulin Ratio 1.2 05/29/18 14:00: PT 12.6 H, INR 1.12, APTT 32.1 05/29/18 14:00: WBC 6.2, RBC 5.37, Hgb 15.8, Hct 47.1, MCV 87.7, MCH 29.4, MCHC 33.5, RDW 12.1, Plt Count 255, MPV 9.8, Neut % (Auto) 54.3, Lymph % (Auto) 35.8 H, Noble % (Auto) 8.3 H, Eos % (Auto) 1.3 L, Baso % (Auto) 0.3, Lymph # (Auto) 2.2, Noble # (Auto) 0.5, Eos # (Auto) 0.1, Baso # (Auto) 0.02, Absolute Neuts (auto) 3.36 I have reviewed the lab results: Yes - RAD Interpretation Narrative RAD Interpretations (Text): 05/29/18 14:42 CXR: FINDINGS: LUNGS: The lungs are well inflated and clear. PLEURA: No pleural effusions or pneumothorax. CARDIOVASCULAR: The heart is normal in size. No aortic atherosclerotic calcifications present. OSSEOUS STRUCTURES: Within normal limits for the patient's age. VISUALIZED UPPER ABDOMEN: Normal. OTHER FINDINGS: None. IMPRESSION: No active pulmonary disease. 05/29/18 16:36 CT ANGIOGRAPHY OF THE CHEST WITH & WITHOUT CONTRAST: AORTA (CHEST AND ABDOMEN): The thoracic and abdominal aorta are unremarkable, without aneurysm, dissection or rupture. No intramural thrombus identified in the thoracic aorta on the non-contrast ct of the chest. The celiac axis, superior mesenteric artery, inferior mesenteric artery and the renal arteries are widely patent. The pelvic arteries are unremarkable. The pulmonary arteries are unremarkable LUNGS: Clear. No nodule, mass or consolidation. MEDIASTINUM: Unremarkable. Normal caliber aorta and pulmonary arterial trunk. No aortic dissection. Normal size heart. LYMPH NODES: Unremarkable. PLEURA: Unremarkable. No pneumothorax. No pleural fluid. BONES: Unremarkable. OTHER FINDINGS: None. CT ANGIOGRAPHY OF THE ABDOMEN AND PELVIS WITH CONTRAST: LIVER: Unremarkable. No gross lesion or ductal dilatation. GALLBLADDER AND BILE DUCTS: Unremarkable. PANCREAS: Unremarkable. No gross lesion or ductal dilatation. SPLEEN: Unremarkable. ADRENALS: Unremarkable. No mass. KIDNEYS AND URETERS: Unremarkable. No hydronephrosis. No solid mass. VASCULATURE: Unremarkable. No aortic aneurysm. No aortic atherosclerotic calcification or mural plaque present. STOMACH AND BOWEL: Unremarkable. No obstruction. No gross mural thickening. There is diverticulosis in the sigmoid colon. Minimal mesenteric inflammatory changes are seen at the junction of the descending colon and sigmoid colon. This could represent mild diverticulitis versus chronic scarring. APPENDIX: Normal appendix. PERITONEUM: Unremarkable. No free fluid. No free air. LYMPH NODES: Unremarkable. No enlarged lymph nodes. BLADDER: Unremarkable. REPRODUCTIVE: Unremarkable. BONES: No acute fracture. OTHER FINDINGS: None. IMPRESSION: There is diverticulosis in the sigmoid colon. Minimal mesenteric inflammatory changes are seen at the junction of the descending colon and sigmoid colon. This could represent mild diverticulitis versus chronic scarring. No evidence of aortic dissection Radiology Orders: 05/29/18 13:44 CHEST PORTABLE [RAD] Stat Computer Hardware Engineer: Radiologist - EKG Interpretation EKG Interpretation (Text): 05/29/18 22:10 Rate 68; NSR; Normal intervals; No STEMI or other signs of acute ischemia Interpreted by ED Physician: Yes Type: 12 lead EKG - Medication Orders Current Medication Orders: Sodium Chloride (Sodium Chloride 0.9%) 1,000 mls @ 999 mls/hr IV .Q1H1M STA Stop: 05/29/18 15:25 Last Admin: 05/29/18 14:40 Dose: 999 mls/hr eMAR Start Stop Document 05/29/18 14:40 SRE (Rec: 05/29/18 14:40 SRE [id number]) Intravenous Solution Start Date 05/29/18 Start Time 14:40 End Date 05/29/18 End time 15:40 Total Infusion Time 60 Disposition/Present on Arrival - Present on Arrival Any Indicators Present on Arrival: No History of DVT/PE: No History of Uncontrolled Diabetes: No Urinary Catheter: No History of Decub. Ulcer: No History Surgical Site Infection Following: None - Disposition Have Diagnosis and Disposition been Completed?: Yes Diagnosis: Chest pain, SOB (shortness of breath), Hemochromatosis Disposition: HOSPITALIZED Disposition Time: 15:36 Patient Plan: Admission Patient Problems: Current Active Problems Problem Status Onset Chest pain Acute Elevated BP without diagnosis of hypertension Acute Hemochromatosis Acute SOB (shortness of breath) Acute Condition: STABLE
[2018-05-29 14:49] LABS: CK-MB 2.4 ng/mL (0.0-3.6)
--- NOTE | 2018-05-29 16:34 | CT ---
PROCEDURE: CT Angiography Chest, Abdomen and Pelvis with and without intravenous contrast HISTORY: SOB, htn COMPARISON: None. TECHNIQUE: Contiguous axial images of the chest, abdomen and pelvis were obtained in the phase of aortic enhancement. A noncontrast enhanced CT of the chest was also obtained to evaluate for possible intramural thrombus. Coronal and sagittal reformats were generated. IV dose administered: 150 cc of Omni 350 Radiation dose: Total exam DLP = 1187.2 mGy-cm. This CT exam was performed using one or more of the following dose reduction techniques: Automated exposure control, adjustment of the mA and/or kV according to patient size, and/or use of iterative reconstruction technique. FINDINGS: CT ANGIOGRAPHY OF THE CHEST WITH & WITHOUT CONTRAST: AORTA (CHEST AND ABDOMEN): The thoracic and abdominal aorta are unremarkable, without aneurysm, dissection or rupture. No intramural thrombus identified in the thoracic aorta on the non-contrast ct of the chest. The celiac axis, superior mesenteric artery, inferior mesenteric artery and the renal arteries are widely patent. The pelvic arteries are unremarkable. The pulmonary arteries are unremarkable LUNGS: Clear. No nodule, mass or consolidation. MEDIASTINUM: Unremarkable. Normal caliber aorta and pulmonary arterial trunk. No aortic dissection. Normal size heart. LYMPH NODES: Unremarkable. PLEURA: Unremarkable. No pneumothorax. No pleural fluid. BONES: Unremarkable. OTHER FINDINGS: None. CT ANGIOGRAPHY OF THE ABDOMEN AND PELVIS WITH CONTRAST: LIVER: Unremarkable. No gross lesion or ductal dilatation. GALLBLADDER AND BILE DUCTS: Unremarkable. PANCREAS: Unremarkable. No gross lesion or ductal dilatation. SPLEEN: Unremarkable. ADRENALS: Unremarkable. No mass. KIDNEYS AND URETERS: Unremarkable. No hydronephrosis. No solid mass. VASCULATURE: Unremarkable. No aortic aneurysm. No aortic atherosclerotic calcification or mural plaque present. STOMACH AND BOWEL: Unremarkable. No obstruction. No gross mural thickening. There is diverticulosis in the sigmoid colon. Minimal mesenteric inflammatory changes are seen at the junction of the descending colon and sigmoid colon. This could represent mild diverticulitis versus chronic scarring. APPENDIX: Normal appendix. PERITONEUM: Unremarkable. No free fluid. No free air. LYMPH NODES: Unremarkable. No enlarged lymph nodes. BLADDER: Unremarkable. REPRODUCTIVE: Unremarkable. BONES: No acute fracture. OTHER FINDINGS: None. IMPRESSION: There is diverticulosis in the sigmoid colon. Minimal mesenteric inflammatory changes are seen at the junction of the descending colon and sigmoid colon. This could represent mild diverticulitis versus chronic scarring. No evidence of aortic dissection
[2018-05-29] MEDS ORDERED: Sodium Chloride 0.9% 1,000 ML IV SCH (17:00)
--- NOTE | 2018-05-29 19:20 | CARD ---
APPROVED REPORT Date of service: 05/29/2018 EKG Measurement Heart [id number] [id number] <Conclusion> Normal sinus rhythm Normal ECG
--- NOTE | 2018-05-29 20:18 | CON ---
DATE: 05/29/2018 HISTORY OF PRESENT ILLNESS: Mr. Oneal is a 52-year-old male admitted to the hospital with chest pain. called the office today informing that he has been having chest discomfort for the past one week and he has been taken to ED. He has history of hemochromatosis diagnosed last year. 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 He has been treated with repeated phlebotomies. Last phlebotomy was a few months ago. No fever, no cough with expectoration. He also has history of coronary artery disease status post cardiac catheterization. Ataxia improved and totally resolved, which he developed sometime in August last year. PAST MEDICAL HISTORY: Coronary artery disease status post cardiac stent placement, hereditary hemochromatosis, history of diverticulitis, GE reflux. PAST SURGICAL HISTORY: Cardiac catheterization. PERSONAL HISTORY: Never smoked. No history of alcohol abuse. ALLERGIES: NO KNOWN DRUG ALLERGIES. REVIEW OF SYSTEMS: As per HPI. A 12-point review of systems reviewed and negative. PHYSICAL EXAMINATION GENERAL: Comfortable in bed in no acute distress. VITAL SIGNS: Temperature 98.8, heart rate is 67, respiratory rate 18 per minute, blood pressure 148/80, pulse ox is 98 % on room air. HEENT: No pallor. NECK: No lymphadenopathy. CHEST: Air entry present and equal bilaterally. No added sound. CARDIOVASCULAR: S1, S2 normal. No murmur, no gallop. ABDOMEN: Soft, nontender. No rebound tenderness. EXTREMITIES: No edema. CENTRAL NERVOUS SYSTEM: Alert and oriented x3. No focal sensory or motor deficit. SKIN: No petechiae, no rash. LABORATORY DATA: White count 6.2, hemoglobin 15.8, hematocrit 47, platelet count 255. Sodium 139, potassium 4.3, creatinine 0.9. Iron 177, iron saturation 59, ferritin pending. Creatinine kinase 250, troponin total kinase 250. Coags within normal limits. D-dimer less than 20. HOME MEDICATIONS: Aspirin 81 mg daily, Lipitor 20 mg daily. IMAGING: CT angio for aortic dissection, chest, abdomen and pelvis was unremarkable except diverticulosis. ASSESSMENT 1. Chest pain, history of coronary artery disease. 2. Hemochromatosis, has been on therapeutic phlebotomy since last one year. 3. History of ataxia, resolved. 4. History of diverticulitis. PLAN: He is admitted to the hospital. Iron studies showed high iron of 177. Iron saturation is high at 59. Ferritin is pending. It is unlikely that chest pain is due to iron overload state although hemochromatosis can affect the cardiac muscles, but for past one year he has been receiving therapeutic phlebotomy. He also had history of ataxia, which was resolved totally. Chest pain, Cardiology consult has been requested with Dr. Rose. He will need phlebotomy, which can be done as an outpatient once discharged from the hospital. Discussed with the patient. He has not been to office in past few months. We will schedule therapeutic phlebotomy as outpatient. Thank Dr. Mccrary for allowing us to participate in Mr. Oneal's care. Carley Oquendo MD
[2018-05-29 22:06] LABS: FERRITIN 38.4 ng/mL
[2018-05-29] MEDS ORDERED: Influenza Vaccine 60 mcg/0.5 mL SYR (4YR UP) IM ONE (22:17)
[2018-05-29] MEDS ORDERED: Pneumococcal 23-Valent Vaccine IM ONE (22:17)
--- NOTE | 2018-05-30 06:38 | CP.PCM.HP ---
History of Present Illness - History of Present Illness History of Present Illness: Jayesh Manjarrez- Internal Medicine Resident- H&P on Behalf of Dr. Knight Subjective: CC: Chest Pain and SOB HPI: Patient is a 52 year old male with a past medical history of hyperlipidemia and hemachromatosis who was admitted for evaluation and treatment of chest pain which began approximately 1 day ago with no specific provoking event. The chest pain originated in the left parasternal region and remained localized. It was associated with tongue and left shoulder numbness. Also admits to SOB which began approximately 1 week ago. States SOB can occur at rest intermittently. Symptoms have improved since admission. Denies associated dizziness, palpitations, and diaphoresis. Further denies fever, chills, headache, weakness, abdominal pain, nausea, vomiting, diarrhea, constipation, and urinary symptoms. 12 point ROS negative except as indicated in the HPI PMHx: hpl, hemachromatosis PSHx: denies Allergies: NKDA Social Hx: social ETOH use, denies tobacco use, denies illicit drug use Family hx: noncontributory 12 point ROS negative except as indicated in the HPI Physical Examination: - Constitutional Appears: Non-toxic, No Acute Distress - Head Exam Head Exam: ATRAUMATIC, NORMOCEPHALIC - Eye Exam Eye Exam: EOMI, PERRLA - ENT Exam ENT Exam: Mucous Membranes Moist - Neck Exam Neck exam: Positive for: Full Rom - Respiratory Exam Respiratory Exam: CTA bilaterally, no rhonchi, no wheezing, no rales - Cardiovascular Exam Cardiovascular Exam: RRR, +S1, +S2, absent: Systolic Murmur - GI/Abdominal Exam GI & Abdominal Exam: Normal Bowel Sounds, Soft. absent: Distended, Firm, Guarding, Organomegaly, Rebound, Tenderness - Extremities Exam Extremities exam: no cyanosis, no clubbing, no edema - Neurological Exam Neurological exam: Alert, Oriented x3, Patient is awake, alert, responds to verbal stimuli, answers questions appropriately, follows commands, and moves extremities past midline - Psychiatric Exam Psychiatric exam: Normal Affect, Normal Mood - Skin Skin Exam: Dry, Warm Assessment and Plan: Atypical Chest Pain- rule out ACS SOB Chronic Hemochromatosis Chronic HPL Diverticulosis in the sigmoid colon 05/30/18- CT Angiography Chest, Abdomen and Pelvis with and without intravenous contrast- There is diverticulosis in the sigmoid colon. Minimal mesenteric inflammatory changes are seen at the junction of the descending colon and sigmoid colon. This could represent mild diverticulitis versus chronic scarring. No evidence of aortic dissection Chest pain was reproducible on palpation. Troponins are less than 0.01 x 3. EKG revealed no defining ST segment/T wave changes. Cardiology was consulted- scheduled for nuclear stress test in the outpatient setting. Hematology (Dr. Oquendo) Consulted- follow up outpatient for phlebotomy. Patient is deemed stable for discharge to home at this time. Patient case reviewed with and plan approved by attending physician, Dr. Knight. Present on Admission - Present on Admission Any Indicators Present on Admission: No Past Patient History - Infectious Disease Hx of Infectious Diseases: None - Past Social History Smoking Status: Never Smoked - CARDIAC Hx Cardiac Disorders: Yes - PULMONARY Hx Respiratory Disorders: No - NEUROLOGICAL Hx Neurological Disorder: No - HEENT Hx HEENT Problems: No - RENAL Hx Chronic Kidney Disease: No - ENDOCRINE/METABOLIC Hx Endocrine Disorders: No - HEMATOLOGICAL/ONCOLOGICAL Hx Blood Disorders: No Other/Comment: hemochromatosis - INTEGUMENTARY Hx Dermatological Problems: No - MUSCULOSKELETAL/RHEUMATOLOGICAL Hx Falls: No - GASTROINTESTINAL Hx Gastrointestinal Disorders: Yes (colitis) Hx Diverticulitis: Yes Hx Gastroesophageal Reflux: Yes - GENITOURINARY/GYNECOLOGICAL Hx Genitourinary Disorders: No - PSYCHIATRIC Hx Psychophysiologic Disorder: No Hx Substance Use: No - SURGICAL HISTORY Hx Cardiac Catheterization: Yes - ANESTHESIA Hx Anesthesia: Yes Hx Anesthesia Reactions: No Hx Malignant Hyperthermia: No Meds Allergies/Adverse Reactions: Allergies Allergy/AdvReac Type Severity Reaction Status Date / Time No Known Allergies Allergy Verified 05/29/18 19:24 Results - Vital Signs Recent Vital Signs: Last Vital Signs Temp 98.0 F 05/30/18 06:00 Pulse 67 05/30/18 06:00 Resp 67 H 05/30/18 06:00 BP 123/78 05/30/18 06:00 Pulse Ox 99 05/30/18 00:01 - Labs Result Diagrams: 05/30/18 07:30 05/30/18 07:30 Labs: Laboratory Results - last 24 hr 05/29/18 05/29/18 05/29/18 02:35 14:00 14:00 WBC 6.2 RBC 5.37 Hgb 15.8 Hct 47.1 MCV 87.7 MCH 29.4 MCHC 33.5 RDW 12.1 Plt Count 255 MPV 9.8 Neut % (Auto) 54.3 Lymph % (Auto) 35.8 H [place] % (Auto) 8.3 H Eos % (Auto) 1.3 L Baso % (Auto) 0.3 Lymph # (Auto) 2.2 [place] # (Auto) 0.5 Eos # (Auto) 0.1 Baso # (Auto) 0.02 Absolute Neuts (auto) 3.36 PT 12.6 H INR 1.12 APTT 32.1 D-Dimer, Quantitative Sodium Potassium Chloride Carbon Dioxide Anion Gap BUN Creatinine Est GFR ( Amer) Est GFR (Non-Af Amer) Random Glucose Calcium Magnesium Iron TIBC % Saturation Ferritin Total Bilirubin AST ALT Alkaline Phosphatase Lactate Dehydrogenase Total Creatine Kinase CK-MB (CK-2) CK-MB (CK-2) % Troponin I < 0.01 NT-Pro-B Natriuret Pep Total Protein Albumin Globulin Albumin/Globulin Ratio 05/29/18 05/29/18 05/29/18 14:00 14:00 14:00 WBC RBC Hgb Hct MCV MCH MCHC RDW Plt Count MPV Neut % (Auto) Lymph % (Auto) [place] % (Auto) Eos % (Auto) Baso % (Auto) Lymph # (Auto) [place] # (Auto) Eos # (Auto) Baso # (Auto) Absolute Neuts (auto) PT INR APTT D-Dimer, Quantitative < 200 Sodium 139 Potassium 4.3 Chloride 105 Carbon Dioxide 24 Anion Gap 14 BUN 16 Creatinine 0.9 Est GFR ( Amer) > 60 Est GFR (Non-Af Amer) > 60 Random Glucose 118 H Calcium 9.3 Magnesium 2.0 Iron 177 TIBC 299 % Saturation 59 H Ferritin 38.4 Total Bilirubin 0.9 AST 34 ALT 39 Alkaline Phosphatase 88 Lactate Dehydrogenase 460 Total Creatine Kinase 250 H CK-MB (CK-2) 2.4 CK-MB (CK-2) % Cancelled Troponin I < 0.01 NT-Pro-B Natriuret Pep 62.7 Total Protein 8.0 Albumin 4.4 Globulin 3.6 Albumin/Globulin Ratio 1.2
[2018-05-30 08:13] LABS: BASO # 0.03 K/mm3 (0.0-2.0); BASO % 0.5 % (0.0-3.0); EOS # 0.2 (0.0-0.7); EOS % 2.3 % (1.5-5.0); HEMOGLOBIN 15.2 g/dL (14.0-18.0); LYMPH # 2.7 (1.2-3.4); LYMPH % 40.7 % (22.0-35.0); MEAN CELL VOLUME 88.3 fl (80.0-105.0); MEAN CORPUSCULAR HEMOGLOBIN 29.5 pg (25.0-35.0); MEAN CORPUSCULAR HGB CONC 33.4 g/dl (31.0-37.0); MONO # 0.7 (0.1-0.6); MONO % 10.1 % (1.0-6.0); RBC 5.15 10^6/uL (3.5-6.1); RED CELL DISTRIBUTION WIDTH 12.1 % (11.5-14.5); WHITE BLOOD COUNT 6.6 10^3/uL (4.5-11.0)
[2018-05-30 08:47] LABS: ALB/GLOB RATIO 1.1 (1.1-1.8); ALBUMIN 3.7 g/dL (3.0-4.8); ALT/SGPT 32 U/L (7-56); AST/SGOT 38 U/L (17-59); BLOOD UREA NITROGEN 16 mg/dL (7-21); CALCIUM 8.7 mg/dL (8.4-10.5); GFR NON-AFRICAN AMERICAN > 60
--- NOTE | 2018-05-30 09:22 | CON ---
DATE OF CONSULTATION: 05/30/2018 REQUESTING PHYSICIAN: Dr. Knight. REASON FOR CONSULTATION: Chest pain. HISTORY: This is a 52-year-old man, known to me from past evaluations with a history of hyperlipidemia and hemochromatosis, who presents to the emergency room complaining of retrosternal chest discomfort. He has noticed exertional dyspnea for the past several days. He was scheduled for a stress test tomorrow in my office. His last one was several years ago and was unremarkable. Prior catheterization approximately 10 years ago revealed mild coronary artery disease at that time. He was hypertensive on arrival, but has not been on antihypertensive agents. He is not diabetic. He does not smoke. There is no family history of premature heart disease. He has a history of hyperlipidemia. PAST MEDICAL HISTORY: His past history is notable for the problems mentioned above. He has been diagnosed with hereditary hemochromatosis, for which he undergoes intermittent phlebotomies. He is followed by Dr. Oquendo for this. He also has a history of colitis in the past. MEDICATIONS: Medications at home include aspirin and atorvastatin 20 mg daily. SOCIAL HISTORY: He does not smoke or drink. 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 FAMILY HISTORY: Unremarkable for premature heart disease. REVIEW OF SYSTEMS: Ten-point review of systems is otherwise unremarkable. PHYSICAL EXAMINATION: GENERAL: He is a healthy-appearing middle-aged man. VITAL SIGNS: His blood pressure is currently 122/78 with a pulse of 66 and sinus, respirations are 14. He is afebrile. HEENT: Normocephalic, atraumatic. NECK: Supple. No JVD noted. CHEST: Clear to auscultation and percussion. HEART: PMI in normal position. No pathological murmur or gallops noted. ABDOMEN: Soft, nontender with normoactive bowel sounds. EXTREMITIES: No clubbing, cyanosis or edema. SKIN: Warm and dry. PSYCHIATRIC: Normal mood and affect. NEUROLOGICAL: Alert and oriented x3. No gross motor or sensory deficits notable. DIAGNOSTIC DATA: White count 6.6, hemoglobin and hematocrit are 15.2 and 45.5 with a platelet count of 252,000. PT/PTT are 12.6 and 32.1, potassium 4.2, BUN and creatinine are 16 and 0.9. Three sets cardiac enzymes are negative. Chest x-ray reveals normal cardiac silhouette with clear lung dubon. The electrocardiogram reveals normal sinus rhythm with no acute abnormalities. CT angiogram was performed showing no evidence of pulmonary embolus. IMPRESSION: Chest pain, etiology uncertain. No clear evidence of cardiac injury or acute ischemia. Risk factors include hyperlipidemia in a middle-aged state. RECOMMENDATIONS: From a cardiac standpoint, he appears stable for discharge home at this time. He will go forward with his stress test planned for tomorrow. Further recommendations will be made based upon those results. Continue risk factor control is advised. Thank you for this consultation. Priyank Lugo MD
--- NOTE | 2018-05-30 10:03 | CARD ---
APPROVED REPORT Date of service: 05/29/2018 EKG Measurement Heart [id number] <Conclusion> Sinus bradycardia Otherwise normal ECG
[2018-05-30 11:08] LABS: PH,URINE 6.5 (4.7-8.0); URINE BILIRUBIN NEGATIVE (NEGATIVE); URINE BLOOD NEGATIVE (NEGATIVE); URINE GLUCOSE (UA) NEGATIVE (NEGATIVE); URINE LEUKOCYTE ESTERASE NEGATIVE Leu/uL (NEGATIVE); URINE PROTEIN NEGATIVE mg/dL (<30 mg/dL); URINE UROBILINOGEN 0.2 E.U./dL (<1 E.U./dL)
[2018-05-30 11:19] LABS: URINE APPEARANCE CLEAR (CLEAR); URINE COLOR YELLOW (YELLOW)
[2018-05-30 12:33] VITALS: PULSE 73; TEMP 98.1
[2018-05-30 14:09] VITALS: BP 142/84; RESP 18; O2SAT 97
--- NOTE | 2018-05-30 20:56 | HP ---
DATE OF EXAM: 05/30/2018 HISTORY OF PRESENT ILLNESS: The patient was seen and examined. I do agree with the note of the medical file clerk. I was involved in the plan of care. The patient came into the hospital with atypical chest pain and shortness of breath. 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 The patient says he has a history of dyslipidemia and hemochromatosis. He is being followed by Dr. Austin for phlebotomy. The patient does not have chest pain at this point. He was brought in overnight and had multiple troponins, which were negative x3. He had an EKG that did not show any ischemic changes. He is scheduled for a stress test tomorrow by Dr. Rose. Dr. Rose did evaluate the patient's cardiology. The patient may have musculoskeletal pain as the cause of his chest pain. The other possibility is he may need pulmonary evaluation. I advised the patient that if his stress test is negative, he should follow up with ip counsel and Dr. Gaines, his primary care doctor who can facilitate this. The patient has chronic hemochromatosis and will continue with phlebotomy. He had shortness of breath that is improved. He has diverticulosis that was seen. The patient had a CT of the chest done that showed the diverticulosis, this is stable. There is no significant abnormalities. He did not have any abdominal pain. The patient was given the flu shot and pneumonia shot. He had been given IV fluids. He was discharged. At home, he had been on a heart-healthy diet. He was given aspirin initially in the hospital. CONDITION: Stable. ACTIVITIES: Increase as tolerated. Followup with Dr. Gaines in one to two weeks. Kalyan Knight MD
== END 2018-05-30 14:10 | disposition home or self-care (01) ==
LOC: ED 13:36 → ERH 15:36 → UNDOADMOB 15:51 → ERH 16:42 → 2RNO 17:22
PROVIDERS: ADMIT Internal Medicine Nephrology; ATTEND Internal Medicine Nephrology
DX: R07.9 Chest pain, unspecified (principal); I25.10 Atherosclerotic heart disease of native coronary artery without angina pectoris; E78.5 Hyperlipidemia, unspecified; E83.110 Hereditary hemochromatosis; K21.9 Gastro-esophageal reflux disease without esophagitis; K57.30 Diverticulosis of large intestine without perforation or abscess without bleeding; Z79.82 Long term (current) use of aspirin; Z79.899 Other long term (current) drug therapy; Z95.5 Presence of coronary angioplasty implant and graft; Z53.20 Procedure and treatment not carried out because of patient's decision for unspecified reasons
CPT/HCPCS: 36415; 71045; 71275; 74175; 80053; 81003; 82550; 82553; 82728; 83540; 83550; 83615; 83735; 83880; 84484; 85025; 85378; 85610; 85730; 93005; 96360; 99283; G0378; J7030; Q9967